=== PATIENT | male | born 1980 | race Caucasian/White ===

== ENCOUNTER 2020-07-01 14:46 | Emergency (ER) | payer OTHER, BC ==
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
[2020-07-01 15:28] LABS: PTT,PARTIAL THROMBOPLSTIN TIME 20.3 SEC (24.5-32.8)
[2020-07-01] MEDS: Sodium Chloride 0.9% 10 ML Syringe FLUSH PRN (15:29)
[2020-07-01] MEDS: Lactated Ringers 1,000 ML IV ONE (15:29)
[2020-07-01] MEDS: HYDROmorphone 1 MG/ML Syringe IVPUSH ONE (15:30)
[2020-07-01] MEDS: Ondansetron 4 MG/2 ML SDV IVPUSH ONE (15:30)
[2020-07-01 15:40] LABS: CHLORIDE,CL 103 mmol/L (98-107); SODIUM,NA 140 mmol/L (136-145)
[2020-07-01] MEDS: Acetaminophen 325 MG Tab PO ONE (16:33)
[2020-07-01] MEDS: Potassium Chloride 20 MEQ Tab.ER PO ONE (17:00)
[2020-07-01 17:01] LABS: BARBITURATE SCREEN,URINE NEGATIVE (NEGATIVE); BENZODIAZEPINES SCREEN,URINE NEGATIVE (NEGATIVE); EDDP,URINE SCREEN NEGATIVE (NEGATIVE); TCA SCREEN,URINE NEGATIVE (NEGATIVE); THC SCREEN,URINE 50 NG/ML NEGATIVE (NEGATIVE)
[2020-07-01 19:00] VITALS: BP 142/95; PULSE 118
== END 2020-07-01 17:19 | disposition home or self-care (01) ==
LOC: LL.ED 14:46
DX: S32.019A Unspecified fracture of first lumbar vertebra, initial encounter for closed fracture (principal); S32.039A Unspecified fracture of third lumbar vertebra, initial encounter for closed fracture; S01.21XA Laceration without foreign body of nose, initial encounter; S10.93XA Contusion of unspecified part of neck, initial encounter; S60.221A Contusion of right hand, initial encounter; F41.8 Other specified anxiety disorders; R79.89 Other specified abnormal findings of blood chemistry; R03.0 Elevated blood-pressure reading, without diagnosis of hypertension; E66.9 Obesity, unspecified; M89.49 Other hypertrophic osteoarthropathy, multiple sites; J45.20 Mild intermittent asthma, uncomplicated; E87.6 Hypokalemia; N28.9 Disorder of kidney and ureter, unspecified; Z72.0 Tobacco use; Z71.6 Tobacco abuse counseling; V48.5XXA Car driver injured in noncollision transport accident in traffic accident, initial encounter
CPT/HCPCS: 71045; 72125; 72131; 72170; 80053; 80305-QW; 80307; 81001; 82150; 82550; 82553; 83605; 83690; 83735; 84484; 84550; 85025; 85610; 85730; 87086; 99284-25; 99285; A9270-GY; J7120

== ENCOUNTER 2020-08-01 18:11 | Emergency (ER) | payer BC ==
[2020-08-01 18:34] VITALS: BP 125/82; PULSE 124
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
[2020-08-01] MEDS: LORazepam 1 MG Tab PO ONE (19:42)
== END 2020-08-01 19:42 | disposition home or self-care (01) ==
LOC: LL.ED 18:11
DX: F41.8 Other specified anxiety disorders (principal); Z87.891 Personal history of nicotine dependence
CPT/HCPCS: 99283; 99284; A9270-GY

== ENCOUNTER 2022-11-03 00:53 | Emergency (ER) | payer BC ==
[2022-11-03 00:59] VITALS: BP 143/93; PULSE 103
== END 2022-11-03 01:30 | disposition home or self-care (01) ==
LOC: LL.ED 00:53
DX: J06.9 Acute upper respiratory infection, unspecified (principal); F17.210 Nicotine dependence, cigarettes, uncomplicated
CPT/HCPCS: 99283

== ENCOUNTER 2024-06-11 14:49 | Emergency (ER) | payer BC ==
[2024-06-11] MEDS ORDERED: Sodium Chloride 0.9% 10 ML Syringe FLUSH PRN (14:51)
[2024-06-11] MEDS ORDERED: Nitroglycerin 0.4 MG Tab.SL SL PRN (14:52)
[2024-06-11] MEDS: Aspirin 81 MG Tab.Chew PO ONE (14:55)
[2024-06-11] MEDS: Aspirin 81 MG Tab.Chew ONE (14:57)
[2024-06-11 15:16] LABS: BASOPHILS ABSOLUTE AUTO 0.02 K/uL (0.00-0.20); BASOPHILS PERCENT AUTO 0.7 % (0.0-2.0); EOSINOPHILS ABSOLUTE AUTO 0.08 K/uL (0.00-0.50); EOSINOPHILS PERCENT AUTO 2.6 % (0.0-5.0); HEMATOCRIT 45.5 % (39.0-49.0); HEMOGLOBIN 16.1 g/dL (13.1-16.8); LYMPHOCYTES ABSOLUTE AUTO 0.97 K/uL (0.50-3.50); LYMPHOCYTES PERCENT AUTO 31.9 % (10.0-50.0); MEAN CORPUSCULAR HEMOGLOBIN 32.6 pg (28.2-33.3); MEAN CORPUSCULAR HGB CONC 35.4 g/dL (31.7-36.0); MEAN CORPUSCULAR VOLUME 92.1 fL (84.0-98.0); MONOCYTES PERCENT AUTO 9.9 % (2.0-14.0); NEUTROPHILS ABSOLUTE AUTO 1.67 K/uL (1.40-7.00); NEUTROPHILS PERCENT AUTO 54.9 % (45.0-80.0); PLATELET COUNT,PLT 87 K/uL (150-350); RED BLOOD CELL COUNT 4.94 M/uL (4.33-5.41); RED CELL DISTRIBUTION WIDTH 11.5 % (11.2-14.1)
[2024-06-11] MEDS: cloNIDine 0.1 MG Tab PO ONE (15:19)
[2024-06-11] MEDS: LORazepam 1 MG Tab PO ONE (15:19)
[2024-06-11 15:34] LABS: ALBUMIN 4.8 g/dL (3.4-5.0); ANION GAP 14.5 meq/L (7-15); BILIRUBIN TOTAL 1.2 mg/dL (0.2-1.0); CALCIUM 9.4 mg/dL (8.5-10.1); CARBON DIOXIDE,CO2 29.7 mmol/L (21.0-32.0); CREATININE 1.01 mg/dL (0.51-1.17); EST CRCL DRUG DOSING (CG) 89.36 mL/min; ETHANOL BLOOD MEDICAL 0.003 g/dL (0.000-0.080); MAGNESIUM 1.5 mg/dL (1.8-2.4); POTASSIUM,K 3.2 mmol/L (3.5-5.1); PROTEIN TOTAL,TP 7.5 g/dL (6.4-8.2)
[2024-06-11] MEDS: Magnesium Sulf/Wat 2 GM/50 mL 2 GM in Premix Bag 1 BAG IV ONE (16:12)
[2024-06-11] MEDS: Potassium Bicarbonate/Cit Ac 20 MEQ Effervescent Tab PO ONE (16:12)
[2024-06-11] MEDS: Labetalol 20 MG/4 ML Syringe IVPUSH ONE (16:22)
[2024-06-11 16:59] LABS: APPEARANCE,URINE SLIGHTLY CLOUDY; BILIRUBIN,URINE NEGATIVE (NEGATIVE); COLOR,URINE DARK YELLOW; GLUCOSE,URINE NEGATIVE (NEGATIVE); KETONES,URINE 40 mg/dL (NEGATIVE); LEUKOCYTE ESTERASE,URINE NEGATIVE (NEGATIVE); NITRITE,URINE NEGATIVE (NEGATIVE); OCCULT BLOOD,URINE NEGATIVE (NEGATIVE); PH,URINE 6.5 (5.0-9.0); PROTEIN,URINE 100 mg/dL (NEGATIVE); UROBILINOGEN,URINE 0.2 E.U./dL (0.2-1.0)
[2024-06-11 17:07] LABS: RBC,URINE 0-5 /HPF; WBC,URINE 0-5 /HPF
[2024-06-11 17:27] LABS: AMPHETAMINES SCREEN, URINE NEGATIVE (NEGATIVE); BARBITURATE SCREEN,URINE NEGATIVE (NEGATIVE); BENZODIAZEPINES SCREEN,URINE NEGATIVE (NEGATIVE); COCAINE METABOLITES,URINE NEGATIVE (NEGATIVE); EDDP,URINE SCREEN NEGATIVE (NEGATIVE); METHAMPHETAMINES SCREEN, URINE NEGATIVE (NEGATIVE); TCA SCREEN,URINE NEGATIVE (NEGATIVE); THC SCREEN,URINE 50 NG/ML NEGATIVE (NEGATIVE)
[2024-06-11 17:33] LABS: BUPRENORPHINE SCREEN,URINE NEGATIVE (NEGATIVE); OXYCODONE SCREEN,URINE NEGATIVE (NEGATIVE)
[2024-06-11] MEDS: Potassium Chloride 20 MEQ Tab.ER PO ONE (18:41)
[2024-06-11] MEDS: Take Home: Lisinopril 10 MG, 4 Tab Pack PO ONE (18:44)
[2024-06-11] MEDS: Sodium Chloride 0.9% 1,000 ML IV ONE (18:45)
[2024-06-11 19:02] VITALS: BP 123/85; PULSE 93
== END 2024-06-11 18:50 | disposition home or self-care (01) ==
LOC: LL.ED 14:49 → SUPCPDRO 14:49 → LL.ED 18:50
DX: I16.0 Hypertensive urgency (principal); J45.909 Unspecified asthma, uncomplicated; E83.42 Hypomagnesemia; E87.6 Hypokalemia; Z79.899 Other long term (current) drug therapy
CPT/HCPCS: 36415; 71045; 80053; 80305; 80307; 81001; 83605; 83690; 83735; 83880; 84484; 85025; 85379; 93005; 96365; 96366; 96375; 99285; A9270; J1920; J3475